=== PATIENT | male | born 1980 | race Caucasian/White ===

== ENCOUNTER 2020-04-22 21:24 | Emergency (ER) | payer BC, OTHER ==
[~2020-04-22] VITALS: Ht 172.7 cm; Wt 83.9 kg
--- NOTE | 2020-04-22 21:30 | NUR ---
PT BIBSELF C/O A BENT RING FINGER ON LEFT HAND. PT AAXO4 BREATHING EVENLY AND UNLABORED. PT STATES "I STUBBED MY FINGER IN A CHAIR AND IT IS JUST BENT". PT SKIN, WARM, DRY, AND INTACT. NO BLEEDING NOTED ON FINGER. PT ATTACHED TO MONITOR AND POX. PT GIVEN BLANKET AND CALL LIGHT WITHIN REACH.
[2020-04-22] MEDS ORDERED: IBUPROFEN 400 MG TABLET ONE (22:10)
--- NOTE | 2020-04-22 22:13 | NUR ---
XRAY AT BEDSIDE
[2020-04-22] MEDS ORDERED: IBUPROFEN 400 MG TABLET PO ONE (22:30)
[2020-04-22 22:47] VITALS: BP 137/73
--- NOTE | 2020-04-22 22:47 | NUR ---
Patient discharged to home in stable condition. Written and verbal after care instructions given. Patient verbalizes understanding of instruction.Pt ambulatory with a steady gait
== END 2020-04-22 22:49 | disposition home or self-care (01) ==
LOC: ER 21:31
DX: S60.042A Contusion of left ring finger without damage to nail, initial encounter (principal); W22.8XXA Striking against or struck by other objects, initial encounter; Y93.89 Activity, other specified; Y92.89 Other specified places as the place of occurrence of the external cause; Y99.8 Other external cause status
CPT/HCPCS: 73140-TC